=== PATIENT | female | born 1955 | race Caucasian/White ===

== ENCOUNTER 2020-04-24 14:25 | Outpatient (CLI) | payer OTHER ==
--- NOTE | 2020-04-24 15:55 | RAD ---
LEFT SHOULDER 3 VIEWS: Date: 04/24/2020 HISTORY: Pain. COMPARISON: None. FINDINGS: No fracture. No malalignment. Visualized ribs are intact. 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 IMPRESSION: No acute osseous abnormality. POS: [facility]
== END 2020-04-24 14:26 | disposition home or self-care (01) ==
LOC: MADRAD 14:25
PROVIDERS: ATTEND Family Medicine
DX: M25.512 Pain in left shoulder (principal)